=== PATIENT | female | born 1965 | race Caucasian/White ===

== ENCOUNTER → 2024-04-05 14:50 | Outpatient (REF) | payer OTHER, SELFPAY | LOC: WDC 14:50 | PROVIDERS: ATTENDING PHYSICIAN Family Medicine | DX: M85.80 Other specified disorders of bone density and structure, unspecified site (principal); Z12.31 Encounter for screening mammogram for malignant neoplasm of breast | CPT/HCPCS: 77080 ==

== ENCOUNTER → 2025-01-21 10:24 | Outpatient (REF) | payer OTHER, SELFPAY | LOC: RAD 10:24 | PROVIDERS: ATTENDING PHYSICIAN Physician Assistant | DX: M25.111 Fistula, right shoulder (principal); M25.531 Pain in right wrist; M25.532 Pain in left wrist; M79.642 Pain in left hand; M25.551 Pain in right hip | CPT/HCPCS: 73030; 73110; 73502 ==

== ENCOUNTER → 2025-01-27 12:41 | Outpatient (REF) | payer OTHER, SELFPAY | LOC: RCS 12:41 | PROVIDERS: ATTENDING PHYSICIAN Physician Assistant; FAMILY PHYSICIAN Family Medicine | DX: R07.9 Chest pain, unspecified (principal) | CPT/HCPCS: 93017 ==